=== PATIENT | female | born 2005 | race Caucasian/White ===

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

== ENCOUNTER 2023-04-18 19:51 | Emergency (ER) | payer SELFPAY ==
[~2023-04-18] VITALS: Ht 162.6 cm; Wt 52.2 kg
[~2023-04-18 19:51] MED LIST changes: +LEVO-55 PO
[2023-04-18 19:58] VITALS: BP 144/74
[2023-04-18] MEDS ORDERED: RX-AMOXICILLIN 500 MG CAP #3 PPK PO STA (20:09)
[2023-04-18] MEDS ORDERED: RX-NAPROXEN (NAPROSYN) 250 MG TAB PPK#4 PO STA (20:09)
[2023-04-18] MEDS ORDERED: LIDO15SO3 MM (20:11)
[2023-04-18] MEDS ORDERED: NAPR500T8 PO (20:11)
[2023-04-18] MEDS ORDERED: AMOX875T2 PO (20:11)
--- NOTE | 2023-04-18 20:12 | ED EENT ---
History of Present Illness General Chief Complaint: Dental Problems/Pain Stated Complaint: DENTAL PAIN Nursing Triage Note: RIGHT REAR LOWER DENTAL PAIN X2 MONTHS, WORSE X1 DAY. Allergies and Home Medications Allergies Coded Allergies: No Known Drug Allergies (Unverified , 02/24/21) Patient Home Medication List No Active Prescriptions or Reported Meds Past Vihryyq-Kjnpqv-Tstapz Hx Patient Social History Tobacco Use?: No Substance use?: No Alcohol Use?: No Pt feels they are or have been: No Immunizations Up To Date First/Initial COVID19 Vaccinat: september 2020 Second COVID19 Vaccination Jon: september 2020 Third COVID19 Vaccination Date: september 2020 Past Medical History Surgery/Hospitalization HX: ASTHMA, IUD Surgeries: No Respiratory: No Cardiac: No Neurological: No Reproductive Disorders: No [employer] History: IUD Genitourinary: No Gastrointestinal: No Musculoskeletal: No Endocrine: No HEENT: No Cancer: No Psychosocial: No Integumentary: No Blood Disorders: No Physical Exam Vital Signs Vital Signs - First Documented 04/18/23 19:58 Temp 36.9 Pulse 96 Resp 22 B/P (MAP) 144/74 (97) Pulse Ox 97 O2 Delivery Room Air Height, Weight, BMI Height: 5'3.00" Weight: 106lbs. oz. [id number]; 19.00 BMI Method:Actual Progress/Results/Core Measures Results/Orders My Orders Orders - MARTA MERRILL DO Rx-Amoxicillin Capsule (Rx-Polymox Capsu (04/18/23 20:09) Rx-Naproxen (Rx-Naprosyn) (04/18/23 20:09) Lidocaine 2% Viscous 15 Ml (Xylocaine Vi (04/18/23 20:15) Vital Signs/I&O 04/18/23 19:58 Temp 36.9 Pulse 96 Resp 22 B/P (MAP) 144/74 (97) Pulse Ox 97 O2 Delivery Room Air Blood Pressure Mean: 97 Departure Impression Primary Impression: Dental caries Additional Impression: Pain, dental Disposition: 01 HOME, SELF-CARE Condition: Stable Departure-Patient Inst. Decision time for Depature: 20:10 Referrals: [facility] (PCP/Family) Primary Care Physician Patient Instructions: Dental Pain ED, Tooth Decay, Adult (DC) Add. Discharge Instructions: SOFT FOODS LIQUIDS AT ROOM TEMPERATURE FOLLOW UP WITH DENTIST THIS WEEK FOR FURTHER CARE All discharge instructions reviewed with patient and/or family. Voiced understanding. Scripts Lidocaine HCl (Lidocaine HCl Viscous) 2 % Solution 1-2 ML MM [id number], #120 ML Prov: MARTA MERRILL DO 04/18/23 Naproxen (Naproxen) 500 Mg Tablet.dr 500 MG PO BID, #20 TAB Prov: MARTA MERRILL DO 04/18/23 Amoxicillin (Amoxicillin) 875 Mg Tablet 875 MG PO BID, #20 TAB Prov: MARTA MERRILL DO 04/18/23 MARTA MERRILL DO Apr 18, 2023 20:12
[2023-04-18] MEDS ORDERED: LIDOCAINE 2% VISCOUS 15 ML UDC MM ONE (20:15)
== END 2023-04-18 20:22 | disposition home or self-care (01) ==
LOC: EDUNIT# 19:51 → ER 19:52
DX: K02.9 Dental caries, unspecified (principal)
CPT/HCPCS: 99283